=== PATIENT | female | born 1950 | race Hispanic/Latino ===

== ENCOUNTER 2018-05-18 00:04 | Inpatient (IN) | payer BC, MEDICARE ==
[2018-05-18 00:04] VITALS: BMI 23.4
--- NOTE | 2018-05-18 00:26 | C.PDOC ---
History Of Present Illness The patient presents to the ED for evaluation of suprapubic abdominal pain which began around two days ago. She also reports a couple episodes of emesis. Patient is currently undergoing treatment for CLL. She was evaluated by her gas troenterologist, Dr. Pearson, earlier today and referred to the ED for further evaluation. Patient denies fever, chills. Time Seen by Provider: 05/18/18 00:26 Chief Complaint (Nursing): Abdominal Pain History Per: Patient History/Exam Limitations: no limitations Onset/Duration Of Symptoms: Days (2) Current Symptoms Are (Timing): Still Present Severity: Mild Pain Scale Rating Of: 4 Location Of Pain/Discomfort: RLQ, Suprapubic Radiation Of Pain To:: None Quality Of Discomfort: Dull, Aching Associated Symptoms: Vomiting. denies: Fever, Chills Exacerbating Factors: None Alleviating Factors: None Last Bowel Movement: Today Recent travel outside of the [place]: No Additional History Per: Patient Abnormal Vaginal Bleeding: No Past Medical History Reviewed: Historical Data, Nursing Documentation, Vital Signs Vital Signs: Last Vital Signs Temp 98.0 F 05/18/18 00:15 Pulse 69 05/18/18 00:15 Resp 20 05/18/18 00:15 BP 120/74 05/18/18 00:15 Pulse Ox 98 05/18/18 00:15 - Medical History PMH: HTN, Hypercholesterolemia, Hyperlipidemia Denies: Alzheimer's Disease, Asthma, Atrial Fibrillation, Bronchitis, Cardia Arrhythmia, CHF, COPD, Emphysema, Mitral Valve Prolapse, Peripheral Edema, Pneumonia, Pulmonary Embolism, Chronic Kidney Disease, Sleep Apnea Surgical History: No Surg Hx Denies: Pacemaker - [employer] Procedures BONE MARROW BIOPSY (01/08/13) Family History: States: Unknown Family Hx - Social History Hx Tobacco Use: No Hx Alcohol Use: No Hx Substance Use: No - Immunization History Hx Tetanus Toxoid Vaccination: No Hx Influenza Vaccination: Yes Hx Pneumococcal Vaccination: Yes Review Of Systems Constitutional: Negative for: Fever, Chills Cardiovascular: Negative for: Chest Pain, Palpitations Respiratory: Negative for: Cough, Shortness of Breath Gastrointestinal: Positive for: Vomiting, Abdominal Pain (suprapubic ). Negative for: Diarrhea Genitourinary: Negative for: Dysuria, Frequency, Hematuria Musculoskeletal: Negative for: Back Pain Skin: Negative for: Rash, Lesions, Jaundice, Bruising Neurological: Negative for: Weakness, Numbness Psych: Negative for: Anxiety Physical Exam - Physical Exam Appears: Non-toxic, No Acute Distress Skin: Warm, Dry Head: Normacephalic Eye(s): bilateral: Normal Inspection Oral Mucosa: Moist Neck: Supple Chest: Symmetrical, No Deformity Cardiovascular: Rhythm Regular, No Murmur Respiratory: No Rales, No Rhonchi, No Wheezing Gastrointestinal/Abdominal: Soft, Tenderness (diffuse ), No Distention, Guarding (mild, voluntary ), No Rebound, Other (tympanic to percussion ) Back: Normal Inspection Extremity: Normal ROM, Capillary Refill (less than 2 seconds ) Extremity: Bilateral: Atraumatic Neurological/Psych: Oriented x3 Gait: Steady ED Course And Treatment - Laboratory Results Result Diagrams: 05/18/18 00:56 05/18/18 00:56 ECG: Interpreted By Me, Viewed By Me ECG Rhythm: Sinus Rhythm (71), Nonspecific Changes (occ pvc's) O2 Sat by Pulse Oximetry: 98 (on RA ) Pulse Ox Interpretation: Normal - CT Scan/US CT A/P Other Rad Studies (CT/US): Read By Radiologist, Radiology Report Reviewed CT/US Interpretation: EXAM: CT Abdomen and Pelvis with IV contrast. CLINICAL HISTORY: Abd pain. TECHNIQUE: Axial computed tomography images of the abdomen and pelvis with oral and intravenous contrast. CONTRAST: With; OMNI 240 & 100MLS VISI 320. COMPARISON: None provided. FINDINGS: LUNG BASES: The lung bases appear clear. No pleural effusions are seen. LIVER: Several small hepatic cysts noted. GALLBLADDER AND BILE DUCTS: The gallbladder appears within normal limits. No radioopaque gallstones are seen. No biliary ductal dilatation is evident. PANCREAS: Unremarkable. SPLEEN: Unremarkable. ADRENAL GLANDS: Unremarkable. KIDNEYS, URETERS, AND BLADDER: The kidneys appear within normal limits. There is no hydronephrosis or hydroureter. No urinary calculi are seen. Several small cortical renal cysts bilaterally. STOMACH AND BOWEL: Unremarkable appearance of the stomach and bowel. No evidence of bowel obstruction. No evidence suggesting enteritis or colitis. APPENDIX: Markedly dilated fluid filled thick walled appendix with marked adjacent stranding compatible with acute appendicitis. No abscess or free air noted. PERITONEUM: Trace abdominal and pelvic ascites. LYMPH NODES: No lymphadenopathy is evident. REPRODUCTIVE: Unremarkable as visualized. VASCULATURE: No evidence of abdominal aortic aneurysm. BONES: No aggressive appearing osseous lesion. No acute osseous pathology evident. IMPRESSION: 1. Markedly dilated fluid filled thick walled appendix with marked adjacent stranding compatible with acute appendicitis. No abscess or free air noted. 2. Trace abdominal and pelvic ascites. 3. Several small hepatic and renal cysts noted. Progress Note: Bloodwork, urinalysis, CT A/P, EKG ordered. Protonix IVP, Toradol IVP, Zofran IVP, and IV Fluids given. spoke with dr bell her oncologist -do not take the IMBRUVICA for 7 days after the surgery. spoke with surgery - will come and see the pt in the ed Disposition Discussed With Dr.: Nico Suresh Comment: accepted the pt on his service and took over the care at 5:12AM Doctor Will See Patient In The: ED Counseled Patient/Family Regarding: Studies Performed, Diagnosis - Disposition Disposition: HOSPITALIZED Disposition Time: 00:26 Condition: FAIR Forms: [employer] (Latvian) - POA Present On Arrival: None - Clinical Impression Clinical Impression: Abdominal pain, Acute appendicitis, CLL (chronic lymphocytic leukemia) - Scribe Statement The provider has reviewed the documentation as recorded by the Scribe (Radha Harris) Provider Attestation: All medical record entries made by the Scribe were at my direction and personally dictated by me. I have reviewed the chart and agree that the record accurately reflects my personal performance of the history, physical exam, medical decision making, and the department course for this patient. I have also personally directed, reviewed, and agree with the discharge instructions and di sposition. Decision To Admit - Pt Status Changed To: Hospital Disposition Of: Inpatient - Admit Certification Admit to Inpatient:: After my assessment, the patient will require hospit alization for at least two midnights. This is because of the severity of symptoms shown, intensity of services needed, and/or the medical risk in this patient being treated as an outpatient. - InPatient: Physician Admission Certification:: After my assessment, the patient will require hospitalization for at least two midnights. This is because of the severity of symptoms shown, intensity of services needed, and/or the medical risk in this patient being treated as an outpatient. - . Bed Request Type: Regular Admitting Physician: Nico Suresh Patient Diagnosis: Abdominal pain, Acute appendicitis, CLL (chronic lymphocytic leukemia)
[2018-05-18] MEDS ORDERED: Sodium Chloride 0.9% 1,000 ML IV ONE (00:35)
[2018-05-18] MEDS ORDERED: Iohexol 240 (50 ml) PO STA (00:35)
[2018-05-18] MEDS ORDERED: Sodium Chloride 0.9% 1,000 ML ONE (01:00)
[2018-05-18] MEDS ORDERED: Iohexol 240 (50 ml) ONE (01:00)
[2018-05-18 01:08] LABS: INR 1.3; PROTHROMBIN TIME 14.5 SECONDS (9.7-12.2)
[2018-05-18 01:27] LABS: ALB/GLOB RATIO 1.5 (1.0-2.1); ALBUMIN 4.4 g/dL (3.5-5.0); ALT/SGPT 8 U/L (9-52); AST/SGOT 15 U/L (14-36); BLOOD UREA NITROGEN 14 mg/dL (7-17); CALCIUM 8.8 mg/dl (8.6-10.4); GFR NON-AFRICAN AMERICAN > 60; LIPASE 23 U/L (23-300)
[2018-05-18 01:36] LABS: BASO # 0.1 K/uL (0.0-0.2); BASO % 0.5 % (0.0-2.0); HEMOGLOBIN 13.2 g/dL (11.0-16.0); LYMPH # 0.7 K/uL (1.0-4.3); LYMPH % 3.3 % (20.0-40.0); MEAN CELL VOLUME 79.6 fL (81.0-99.0); MEAN CORPUSCULAR HEMOGLOBIN 24.2 pg (27.0-31.0); MEAN CORPUSCULAR HGB CONC 30.4 g/dL (33.0-37.0); MEAN PLATELET VOLUME 12.9 fL (7.2-11.7); MONO # 1.7 K/uL (0.0-0.8); MONO % 7.9 % (0.0-10.0); NEUT # 18.7 K/uL (1.8-7.0); NEUT % 88.3 % (50.0-75.0); PLATELET COUNT 121 K/uL (130-400); RBC 5.46 Mil/uL (3.80-5.20); RED CELL DISTRIBUTION WIDTH 16.3 % (11.5-14.5); WHITE BLOOD COUNT 21.2 K/uL (4.8-10.8)
[2018-05-18] MEDS ORDERED: Iodixanol 320 MG/ML 100 ML BOTTLE IV ONE (02:38)
[2018-05-18 03:54] LABS: LYMPHOCYTE 4 % (20-40); MONOCYTE 9 % (0-10); NEUTROPHIL 87 % (50-75); TOTAL CELLS COUNTED 100
[2018-05-18 03:55] LABS: PLATELET ESTIMATE SLIGHTLY DECREASED (NORMAL)
[2018-05-18] MEDS ORDERED: Piperacillin/Tazobact 3.375 gm 100 ML IVPB STA (03:55)
[2018-05-18] MEDS ORDERED: Piperacillin/Tazobact 3.375 gm 100 ML IVPB ONE (04:20)
[2018-05-18 07:12] LABS: URINE BACTERIA RARE (<OCC); URINE BILIRUBIN NEGATIVE (NEGATIVE); URINE BLOOD NEGATIVE (NEGATIVE); URINE CLARITY Clear (Clear); URINE COLOR Yellow (YELLOW); URINE GLUCOSE (UA) NORMAL (Normal); URINE LEUKOCYTE ESTERASE TRACE Leu/uL (Negative); URINE PROTEIN NEGATIVE (NEGATIVE); URINE UROBILINOGEN NORMAL mg/dL (0.2-1.0)
[2018-05-18] MEDS ORDERED: Piperacillin/Tazobact 3.375 GM in Sodium Chloride 100 ML IVPB SCH (07:15)
[2018-05-18] MEDS ORDERED: Lactated Ringer's 1,000 ML IV SCH ×2 (07:30→12:30)
--- NOTE | 2018-05-18 07:33 | CP.PCM.CON ---
History of Present Illness - History of Present Illness History of Present Illness: Surgery: Dr. Galloway Pt is a 67F with PMHx significant for CLL & adrenal adenoma s/p L adrenalectomy who presents to with complaints of abdominal pain that started on tuesday night. Pt states the pain was mostly located in the lower part of her abdomen, radiating from the R to the L side. She states she has never had pain like this in the past. She decided to come to the hospital yesterday when her pain did not improve. Pt admits to associated nausea but denies vomiting, fevers/chills. In the ER, pt had a CT abdomen/pelvis which shows dilated appendix with fat stranding. Surgery called to evaluate. Currently, pt is resting comfortably. States the pain medication is helping however, pain is still there. She states her last colonoscopy was [address] Pearson and it was normal. Denies other complaints at this time. PMHx: CLL, adrenal adenoma PSHx: , L adrenalectomy, R oopherectomy SocialHx: denies smoking/EtOH/drugs FamHx: non-contributory All: NKDA Review of Systems - Review of Systems All systems: reviewed and no additional remarkable complaints except (as per HPI) Past Patient History - Past Medical History & Family History Past Medical History?: Yes - Past Social History Smoking Status: Never Smoked - CARDIAC Hx Atrial Fibrillation: No Hx Cardia Arrhythmia: No Hx Congestive Heart Failure: No Hx Pacemaker: No Hx Peripheral Edema: No - PULMONARY Hx Asthma: No Hx Bronchitis: No Hx Chronic Obstructive Pulmonary Disease (COPD): No Hx Emphysema: No Hx Pneumonia: No Hx Pulmonary Embolism: No Hx Sleep Apnea: No - NEUROLOGICAL Hx Alzheimer's Disease: No - HEENT Hx HEENT Problems: No Other/Comment: wear eyeglasses - RENAL Hx Chronic Kidney Disease: No - ENDOCRINE/METABOLIC Hx Endocrine Disorders: Yes Hx Adrenal Cancer: Yes (adrenal mass benign) - HEMATOLOGICAL/ONCOLOGICAL Hx Blood Transfusions: Yes (post surgery 1992) - INTEGUMENTARY Hx Dermatological Problems: No - MUSCULOSKELETAL/RHEUMATOLOGICAL Hx Falls: No - GASTROINTESTINAL Hx Gastroesophageal Reflux: Yes - GENITOURINARY/GYNECOLOGICAL Hx Genitourinary Disorders: No - PSYCHIATRIC Hx Substance Use: No - SURGICAL HISTORY Hx Surgeries: Yes Hx Section: Yes (1x) Other/Comment: cyst removed from R breast,biopsy negative;adrenalectomy,mass benign. right ovary removed - ANESTHESIA Hx Anesthesia: Yes Hx Anesthesia Reactions: No Hx Malignant Hyperthermia: No Meds Allergies/Adverse Reactions: Allergies Allergy/AdvReac Type Severity Reaction Status Date / Time No Known Allergies Allergy Verified 01/08/13 09:48 - Medications Medications: Current Medications Lactated Ringer's (Lactated Ringer's) 1,000 mls @ 100 mls/hr IV .Q10H LEISA Physical Exam - Constitutional Appears: Well, No Acute Distress - Head Exam Head Exam: ATRAUMATIC, NORMOCEPHALIC - Eye Exam Eye Exam: Normal appearance - ENT Exam ENT Exam: Mucous Membranes Moist - Respiratory Exam Respiratory Exam: NORMAL BREATHING PATTERN - Cardiovascular Exam Cardiovascular Exam: RRR - GI/Abdominal Exam GI & Abdominal Exam: Rebound, Soft, Tenderness (RLQ/suprapubic ). absent: Distended - Neurological Exam Neurological exam: Alert, Oriented x3 - Skin Skin Exam: Dry Results - Vital Signs Recent Vital Signs: Last Vital Signs Temp 100.0 F H 05/18/18 06:44 Pulse 98 H 05/18/18 06:15 Resp 16 05/18/18 06:15 BP 122/68 05/18/18 06:15 Pulse Ox 100 05/18/18 06:15 - Labs Result Diagrams: 05/18/18 00:56 05/18/18 00:56 Labs: Laboratory Results - last 24 hr 05/18/18 05/18/18 05/18/18 00:56 00:56 00:56 WBC 21.2 H RBC 5.46 H Hgb 13.2 D Hct 43.4 MCV 79.6 L D MCH 24.2 L MCHC 30.4 L RDW 16.3 H Plt Count 121 L MPV 12.9 H Neut % (Auto) 88.3 H Lymph % (Auto) 3.3 L [place] % (Auto) 7.9 Eos % (Auto) 0.0 Baso % (Auto) 0.5 Neut # (Auto) 18.7 H Lymph # (Auto) 0.7 L [place] # (Auto) 1.7 H Eos # (Auto) 0.0 Baso # (Auto) 0.1 Neutrophils % (Manual) 87 H Lymphocytes % (Manual) 4 L Monocytes % (Manual) 9 Platelet Estimate Slightly decreased L PT 14.5 H INR 1.3 APTT 26 Sodium 139 Potassium 3.7 Chloride 102 Carbon Dioxide 26 Anion Gap 15 BUN 14 Creatinine 0.8 Est GFR ( Amer) > 60 Est GFR (Non-Af Amer) > 60 Random Glucose 105 Calcium 8.8 Total Bilirubin 1.8 H AST 15 ALT 8 L Alkaline Phosphatase 71 Total Protein 7.3 Albumin 4.4 Globulin 2.9 Albumin/Globulin Ratio 1.5 Lipase 23 Urine Color Urine Clarity Urine pH Ur Specific [place] Urine Protein Urine Glucose (UA) Urine Ketones Urine Blood Urine Nitrate Urine Bilirubin Urine Urobilinogen Ur Leukocyte Esterase Urine WBC (Auto) Urine RBC (Auto) Urine Bacteria 05/18/18 06:49 WBC RBC Hgb Hct MCV MCH MCHC RDW Plt Count MPV Neut % (Auto) Lymph % (Auto) [place] % (Auto) Eos % (Auto) Baso % (Auto) Neut # (Auto) Lymph # (Auto) [place] # (Auto) Eos # (Auto) Baso # (Auto) Neutrophils % (Manual) Lymphocytes % (Manual) Monocytes % (Manual) Platelet Estimate PT INR APTT Sodium Potassium Chloride Carbon Dioxide Anion Gap BUN Creatinine Est GFR ( Amer) Est GFR (Non-Af Amer) Random Glucose Calcium Total Bilirubin AST ALT Alkaline Phosphatase Total Protein Albumin Globulin Albumin/Globulin Ratio Lipase Urine Color Yellow Urine Clarity Clear Urine pH 6.0 Ur Specific [place] 1.006 Urine Protein Negative Urine Glucose (UA) Normal Urine Ketones Trace Urine Blood Negative Urine Nitrate Negative Urine Bilirubin Negative Urine Urobilinogen Normal Ur Leukocyte Esterase Trace Urine WBC (Auto) 2 Urine RBC (Auto) 3 Urine Bacteria Rare - Imaging and Cardiology CT scan - abdomen Status: Image reviewed by me, Report reviewed by me Assessment & Plan - Assessment and Plan (Free Text) Assessment: 67F with acute appendicitis Plan: - Keep NPO - IV ABX & IVF - OR for lap appendectomy - d/w Dr. Laverne Wilks
--- NOTE | 2018-05-18 09:41 | CP.PCM.CON ---
History of Present Illness - History of Present Illness History of Present Illness: I was asked to see patient for abdom pain. 67 yo female h/o HTN, lymphoma, was seen in the office yest afternoon- reported RLQ pain x 1 day- mod. Denied fever, N,V, chills, Sz. Then in evening pain became worse. She called me and I sent her to ER. I called the ER MD11:30 last night. Patient in the ER was found to have elev WBC [address] showing a distended appendix. Surgery consult was called Dr Galloway. Denies const, diarrhea, RB, melena. Review of Systems - Constitutional Constitutional: absent: Chills, Fever - EENT Eyes: absent: Diplopia - Cardiovascular Cardiovascular: absent: Chest Pain, Dyspnea, Palpitations - Respiratory Respiratory: absent: Cough, Dyspnea, Hemoptysis - Gastrointestinal Gastrointestinal: Abdominal Pain. absent: Coffee Ground Emesis, Diarrhea, Dysphagia, Hematemesis, Hematochezia, Loose Stools, Melena, Vomiting - Genitourinary Genitourinary: absent: Dysuria, Flank Pain, Hematuria - Musculoskeletal Musculoskeletal: absent: Muscle Cramps - Integumentary Integumentary: absent: Rash, Jaundice - Neurological Neurological: absent: Convulsions, Headaches Past Patient History - Past Medical History & Family History Past Medical History?: Yes - Past Social History Smoking Status: Never Smoked - CARDIAC Hx Atrial Fibrillation: No Hx Cardia Arrhythmia: No Hx Congestive Heart Failure: No Hx Pacemaker: No Hx Peripheral Edema: No - PULMONARY Hx Asthma: No Hx Bronchitis: No Hx Chronic Obstructive Pulmonary Disease (COPD): No Hx Emphysema: No Hx Pneumonia: No Hx Pulmonary Embolism: No Hx Sleep Apnea: No - NEUROLOGICAL Hx Alzheimer's Disease: No - HEENT Hx HEENT Problems: No Other/Comment: wear eyeglasses - RENAL Hx Chronic Kidney Disease: No - ENDOCRINE/METABOLIC Hx Endocrine Disorders: Yes Hx Adrenal Cancer: Yes (adrenal mass benign) - HEMATOLOGICAL/ONCOLOGICAL Hx Blood Transfusions: Yes (post surgery 1992) - INTEGUMENTARY Hx Dermatological Problems: No - MUSCULOSKELETAL/RHEUMATOLOGICAL Hx Falls: No - GASTROINTESTINAL Hx Gastroesophageal Reflux: Yes - GENITOURINARY/GYNECOLOGICAL Hx Genitourinary Disorders: No - PSYCHIATRIC Hx Substance Use: No - SURGICAL HISTORY Hx Surgeries: Yes Hx Section: Yes (1x) Other/Comment: cyst removed from R breast,biopsy negative;adrenalectomy,mass benign. right ovary removed - ANESTHESIA Hx Anesthesia: Yes Hx Anesthesia Reactions: No Hx Malignant Hyperthermia: No Meds Allergies/Adverse Reactions: Allergies Allergy/AdvReac Type Severity Reaction Status Date / Time No Known Allergies Allergy Verified 01/08/13 09:48 - Medications Medications: Current Medications Lactated Ringer's (Lactated Ringer's) 1,000 mls @ 100 mls/hr IV .Q10H LEISA Piperacillin Sod/Tazobactam (Sod 3.375 gm/ Sodium Chloride) 100 mls @ 200 ml s/hr IVPB Q6H LEISA; Protocol Ondansetron HCl (Zofran Inj) 4 mg IVP Q4H PRN PRN Reason: Nausea/Vomiting Physical Exam - Constitutional Appears: Non-toxic - Neck Exam Neck exam: Negative for: Tenderness - Respiratory Exam Respiratory Exam: Clear to Auscultation Bilateral - Cardiovascular Exam Cardiovascular Exam: RRR - GI/Abdominal Exam GI & Abdominal Exam: Guarding, Normal Bowel Sounds, Soft, Tenderness. absent: Distended, Mass, Rebound Additional comments: mod tender RLQ - Extremities Exam Extremities exam: Negative for: calf tenderness, pedal edema - Neurological Exam Neurological exam: Alert - Psychiatric Exam Psychiatric exam: Normal Affect Results - Vital Signs Recent Vital Signs: Last Vital Signs Temp 98.4 F 05/18/18 08:00 Pulse 88 05/18/18 08:00 Resp 20 05/18/18 08:00 BP 92/59 L 05/18/18 08:00 Pulse Ox 95 05/18/18 08:00 - Labs Result Diagrams: 05/18/18 00:56 05/18/18 00:56 Labs: Laboratory Results - last 24 hr 05/18/18 05/18/18 05/18/18 00:56 00:56 00:56 WBC 21.2 H RBC 5.46 H Hgb 13.2 D Hct 43.4 MCV 79.6 L D MCH 24.2 L MCHC 30.4 L RDW 16.3 H Plt Count 121 L MPV 12.9 H Neut % (Auto) 88.3 H Lymph % (Auto) 3.3 L [place] % (Auto) 7.9 Eos % (Auto) 0.0 Baso % (Auto) 0.5 Neut # (Auto) 18.7 H Lymph # (Auto) 0.7 L [place] # (Auto) 1.7 H Eos # (Auto) 0.0 Baso # (Auto) 0.1 Neutrophils % (Manual) 87 H Lymphocytes % (Manual) 4 L Monocytes % (Manual) 9 Platelet Estimate Slightly decreased L PT 14.5 H INR 1.3 APTT 26 Sodium 139 Potassium 3.7 Chloride 102 Carbon Dioxide 26 Anion Gap 15 BUN 14 Creatinine 0.8 Est GFR ( Amer) > 60 Est GFR (Non-Af Amer) > 60 Random Glucose 105 Calcium 8.8 Total Bilirubin 1.8 H AST 15 ALT 8 L Alkaline Phosphatase 71 Total Protein 7.3 Albumin 4.4 Globulin 2.9 Albumin/Globulin Ratio 1.5 Lipase 23 Urine Color Urine Clarity Urine pH Ur Specific [place] Urine Protein Urine Glucose (UA) Urine Ketones Urine Blood Urine Nitrate Urine Bilirubin Urine Urobilinogen Ur Leukocyte Esterase Urine WBC (Auto) Urine RBC (Auto) Urine Bacteria 05/18/18 06:49 WBC RBC Hgb Hct MCV MCH MCHC RDW Plt Count MPV Neut % (Auto) Lymph % (Auto) [place] % (Auto) Eos % (Auto) Baso % (Auto) Neut # (Auto) Lymph # (Auto) [place] # (Auto) Eos # (Auto) Baso # (Auto) Neutrophils % (Manual) Lymphocytes % (Manual) Monocytes % (Manual) Platelet Estimate PT INR APTT Sodium Potassium Chloride Carbon Dioxide Anion Gap BUN Creatinine Est GFR ( Amer) Est GFR (Non-Af Amer) Random Glucose Calcium Total Bilirubin AST ALT Alkaline Phosphatase Total Protein Albumin Globulin Albumin/Globulin Ratio Lipase Urine Color Yellow Urine Clarity Clear Urine pH 6.0 Ur Specific [place] 1.006 Urine Protein Negative Urine Glucose (UA) Normal Urine Ketones Trace Urine Blood Negative Urine Nitrate Negative Urine Bilirubin Negative Urine Urobilinogen Normal Ur Leukocyte Esterase Trace Urine WBC (Auto) 2 Urine RBC (Auto) 3 Urine Bacteria Rare Assessment & Plan (1) HTN (hypertension) Status: Acute (2) Abdominal pain Assessment and Plan: CT- dil appendix, stranding, and elev WBC- c/w acute appendicitis. Dr Galloway on consult. Plan for surgery. Status: Acute (3) Acute appendicitis Status: Acute (4) CLL (chronic lymphocytic leukemia) Status: Acute (5) Lymphoma in remission Status: Chronic (6) Thrombocytopenia Assessment and Plan: PLTs 121 Status: Acute
[2018-05-18] MEDS: Piperacillin/Tazobact 3.375 GM in Sodium Chloride 100 ML IVPB SCH ×3 (10:26→20:37)
[2018-05-18] MEDS ORDERED: Bupivacaine 0.5%/Epi 1:200,000 (10 ML SOL) ONE (10:48)
[2018-05-18] MEDS ORDERED: Propofol 10 mg/ml Inj (20 ML) ONE (10:54)
[2018-05-18] MEDS ORDERED: Midazolam 2 MG/2 ML VIAL ONE (10:54)
[2018-05-18] MEDS ORDERED: Succinylcholine Chloride 20 mg/ml Syr (5 ml) IV ONE (10:56)
[2018-05-18] MEDS ORDERED: Rocuronium 10 mg/ml (5 ml) ONE (11:11)
[2018-05-18] MEDS ORDERED: Neostigmine 1:1000 (1 mg/ml) Inj ONE (11:55)
[2018-05-18] MEDS ORDERED: Oxycodone/Acetaminophen 5/325 mg Tab PO PRN (12:06)
--- NOTE | 2018-05-18 12:30 | PCM.SURG1 ---
Surgeon's Initial Post Op Note - Surgeon's Notes Surgeon: Dr. Galloway Group Therapist: Sari PGY2; Dre MS3 Type of Anesthesia: General Endo, Local Anesthesia Administered By: Dr. Alvarenga Pre-Operative Diagnosis: Acute Appendicitis Operative Findings: See operative report Post-Operative Diagnosis: Same Operation Performed: Laparascopic Appendectomy Specimen/Specimens Removed: Appendix Estimated Blood Loss: EBL {In ML}: 20 Blood Products Given: N/A Drains Used: No Drains Post-Op Condition: Good Date of Surgery/Procedure: 05/18/18 Time of Surgery/Procedure: 12:30
--- NOTE | 2018-05-18 12:43 | CT ---
Date of service: 05/18/2018 PROCEDURE: CT Abdomen and Pelvis with contrast HISTORY: abd pain COMPARISON: 11/15/2013 CT abdomen and pelvis. TECHNIQUE: Intravenous contrast dose: 100 cc Visipaque 320. Radiation dose: Total exam DLP = 75.49 mGy-cm. This CT exam was performed using one or more of the following dose reduction techniques: Automated exposure control, adjustment of the mA and/or kV according to patient size, and/or use of iterative reconstruction technique. FINDINGS: LOWER THORAX: Unremarkable. LIVER: Hepatic steatosis. No focal masses. No intrahepatic bile duct dilatation or perihepatic ascites. Incidental finding(s): Multiple simple hepatic cysts the largest in the right hepatic lobe. GALLBLADDER AND BILE DUCTS: Unremarkable. PANCREAS: Unremarkable. No gross lesion or ductal dilatation. SPLEEN: Unremarkable. ADRENALS: Unremarkable. No mass. KIDNEYS AND URETERS: Unremarkable. No hydronephrosis. No solid mass. Incidental finding(s): Multiple bilateral simple renal cysts. VASCULATURE: Unremarkable. No aortic aneurysm. No atherosclerotic calcification or mural plaque present. BOWEL: Dilated small bowel may be secondary to the right lower quadrant inflammatory change/acute appendicitis. APPENDIX: Markedly dilated, edematous appearing appendix with [place]ía appendiceal/right lower quadrant inflammatory changes. Adjacent fluid noted right lower quadrant and pelvis. PERITONEUM: Fluid adjacent to the cecum/appendix identified and there is trace pelvic fluid.. No free air. LYMPH NODES: Unremarkable. No enlarged lymph nodes. BLADDER: Unremarkable. REPRODUCTIVE: Myomatous appearing uterus. BONES: No acute fracture. OTHER FINDINGS: None. IMPRESSION: Acute appendicitis with adjacent inflammatory changes. Free fluid adjacent to the cecum, [id number] and subhepatic space. Concordant results (preliminary interpretation) provided by [employer]. Procedure Completed: 02:49. Preliminary Report: Dictated and Authenticated: 03:56. Final Interpretation: 12:39. May 18, 2018
--- NOTE | 2018-05-18 14:54 | CP.PCM.HP ---
Past Patient History - Past Medical History & Family History Past Medical History?: Yes - Past Social History Smoking Status: Never Smoked - CARDIAC Hx Atrial Fibrillation: No Hx Cardia Arrhythmia: No Hx Congestive Heart Failure: No Hx Pacemaker: No Hx Peripheral Edema: No - PULMONARY Hx Asthma: No Hx Bronchitis: No Hx Chronic Obstructive Pulmonary Disease (COPD): No Hx Emphysema: No Hx Pneumonia: No Hx Pulmonary Embolism: No Hx Sleep Apnea: No - NEUROLOGICAL Hx Alzheimer's Disease: No - HEENT Hx HEENT Problems: No Other/Comment: wear eyeglasses - RENAL Hx Chronic Kidney Disease: No - ENDOCRINE/METABOLIC Hx Endocrine Disorders: Yes Hx Adrenal Cancer: Yes (adrenal mass benign) - HEMATOLOGICAL/ONCOLOGICAL Hx Blood Transfusions: Yes (post surgery 1992) - INTEGUMENTARY Hx Dermatological Problems: No - MUSCULOSKELETAL/RHEUMATOLOGICAL Hx Falls: No - GASTROINTESTINAL Hx Gastroesophageal Reflux: Yes - GENITOURINARY/GYNECOLOGICAL Hx Genitourinary Disorders: No - PSYCHIATRIC Hx Substance Use: No - SURGICAL HISTORY Hx Surgeries: Yes Hx Section: Yes (1x) Other/Comment: cyst removed from R breast,biopsy negative;adrenalectomy,mass benign. right ovary removed - ANESTHESIA Hx Anesthesia: Yes Hx Anesthesia Reactions: No Hx Malignant Hyperthermia: No Meds Allergies/Adverse Reactions: Allergies Allergy/AdvReac Type Severity Reaction Status Date / Time No Known Allergies Allergy Verified 01/08/13 09:48 Results - Vital Signs Recent Vital Signs: Last Vital Signs Temp 98.4 F 05/18/18 13:58 Pulse 84 05/18/18 13:58 Resp 20 05/18/18 13:58 BP 117/65 05/18/18 13:58 Pulse Ox 95 05/18/18 13:58 - Labs Result Diagrams: 05/18/18 00:56 05/18/18 00:56 Labs: Laboratory Results - last 24 hr 05/18/18 05/18/18 05/18/18 00:56 00:56 00:56 WBC 21.2 H RBC 5.46 H Hgb 13.2 D Hct 43.4 MCV 79.6 L D MCH 24.2 L MCHC 30.4 L RDW 16.3 H Plt Count 121 L MPV 12.9 H Neut % (Auto) 88.3 H Lymph % (Auto) 3.3 L Bland % (Auto) 7.9 Eos % (Auto) 0.0 Baso % (Auto) 0.5 Neut # (Auto) 18.7 H Lymph # (Auto) 0.7 L Bland # (Auto) 1.7 H Eos # (Auto) 0.0 Baso # (Auto) 0.1 Neutrophils % (Manual) 87 H Lymphocytes % (Manual) 4 L Monocytes % (Manual) 9 Platelet Estimate Slightly decreased L PT 14.5 H INR 1.3 APTT 26 Sodium 139 Potassium 3.7 Chloride 102 Carbon Dioxide 26 Anion Gap 15 BUN 14 Creatinine 0.8 Est GFR ( Amer) > 60 Est GFR (Non-Af Amer) > 60 Random Glucose 105 Calcium 8.8 Total Bilirubin 1.8 H AST 15 ALT 8 L Alkaline Phosphatase 71 Total Protein 7.3 Albumin 4.4 Globulin 2.9 Albumin/Globulin Ratio 1.5 Lipase 23 Urine Color Urine Clarity Urine pH Ur Specific Luke Urine Protein Urine Glucose (UA) Urine Ketones Urine Blood Urine Nitrate Urine Bilirubin Urine Urobilinogen Ur Leukocyte Esterase Urine WBC (Auto) Urine RBC (Auto) Urine Bacteria 05/18/18 06:49 WBC RBC Hgb Hct MCV MCH MCHC RDW Plt Count MPV Neut % (Auto) Lymph % (Auto) Bland % (Auto) Eos % (Auto) Baso % (Auto) Neut # (Auto) Lymph # (Auto) Bland # (Auto) Eos # (Auto) Baso # (Auto) Neutrophils % (Manual) Lymphocytes % (Manual) Monocytes % (Manual) Platelet Estimate PT INR APTT Sodium Potassium Chloride Carbon Dioxide Anion Gap BUN Creatinine Est GFR ( Amer) Est GFR (Non-Af Amer) Random Glucose Calcium Total Bilirubin AST ALT Alkaline Phosphatase Total Protein Albumin Globulin Albumin/Globulin Ratio Lipase Urine Color Yellow Urine Clarity Clear Urine pH 6.0 Ur Specific [place] 1.006 Urine Protein Negative Urine Glucose (UA) Normal Urine Ketones Trace Urine Blood Negative Urine Nitrate Negative Urine Bilirubin Negative Urine Urobilinogen Normal Ur Leukocyte Esterase Trace Urine WBC (Auto) 2 Urine RBC (Auto) 3 Urine Bacteria Rare
[2018-05-18] MEDS ORDERED: Benzocaine/Menthol (Cepacol) Lozenge MT PRN (23:10)
[2018-05-19] MEDS: Piperacillin/Tazobact 3.375 GM in Sodium Chloride 100 ML IVPB SCH ×2 (02:09→09:46)
[2018-05-19 07:32] LABS: BASO % 0.2 % (0.0-2.0); LYMPH # 0.3 K/uL (1.0-4.3); LYMPH % 1.7 % (20.0-40.0); MEAN CELL VOLUME 79.4 fL (81.0-99.0); MEAN CORPUSCULAR HEMOGLOBIN 25.2 pg (27.0-31.0); MEAN CORPUSCULAR HGB CONC 31.7 g/dL (33.0-37.0); MEAN PLATELET VOLUME 11.9 fL (7.2-11.7); MONO % 7.1 % (0.0-10.0); NEUT # 13.4 K/uL (1.8-7.0); RBC 4.16 Mil/uL (3.80-5.20); RED CELL DISTRIBUTION WIDTH 16.1 % (11.5-14.5); WHITE BLOOD COUNT 14.7 K/uL (4.8-10.8)
[2018-05-19 07:50] LABS: HEMOGLOBIN 10.5 g/dL (11.0-16.0); PLATELET COUNT 83 K/uL (130-400)
[2018-05-19 07:51] LABS: ALB/GLOB RATIO 1.3 (1.0-2.1); ALBUMIN 3.3 g/dL (3.5-5.0); ALT/SGPT 22 U/L (9-52); AST/SGOT 21 U/L (14-36); BLOOD UREA NITROGEN 18 mg/dL (7-17); CALCIUM 8.2 mg/dl (8.6-10.4); GFR NON-AFRICAN AMERICAN > 60
--- NOTE | 2018-05-19 08:02 | CP.PCM.PN ---
Subjective - Date & Time of Evaluation Date of Evaluation: 05/19/18 Time of Evaluation: 07:59 - Subjective Subjective: Surgery Progress Note for Dr. Galloway 67F seen and evaluated at bedside this morning. No acute events overnight. No complaints this morning except mild incisional pain. Patient is ambulating, voiding, passing flatus, and having bowel movements. Denies f/c, n/v/d, SOB, CP, or urinary symptoms. Objective - Vital Signs/Intake and Output Vital Signs (last 24 hours): Temp Pulse Resp BP Pulse Ox 99.2 F 84 20 102/56 L 94 L 05/19/18 04:12 05/19/18 04:12 05/19/18 04:12 05/19/18 04:12 05/19/18 04:12 Intake and Output: 05/19/18 05/19/18 06:59 18:59 Intake Total 1050 Output Total 300 Balance 750 - Medications Medications: Current Medications Benzocaine/Menthol (Cepacol Sore Throat) 1 donell MT Q2H PRN PRN Reason: Sore Throat Last Admin: 05/19/18 02:07 Dose: 1 donell Piperacillin Sod/Tazobactam (Sod 3.375 gm/ Sodium Chloride) 100 mls @ 200 mls/hr IVPB Q6H LEISA; Protocol Last Admin: 05/19/18 02:09 Dose: 200 mls/hr Ondansetron HCl (Zofran Inj) 4 mg IVP Q4H PRN PRN Reason: Nausea/Vomiting Oxycodone/Acetaminophen (Percocet 5/325 Mg Tab) 1 tab PO Q4H PRN PRN Reason: Pain, moderate (4-7) Stop: 05/21/18 12:07 - Labs Labs: 05/19/18 07:27 05/19/18 07:27 PT 14.5 SECONDS (9.7-12.2) H 05/18/18 00:56 INR 1.3 05/18/18 00:56 APTT 26 SECONDS (21-34) 05/18/18 00:56 - Constitutional Appears: Well, Non-toxic, No Acute Distress - Head Exam Head Exam: ATRAUMATIC, NORMAL INSPECTION, NORMOCEPHALIC - Eye Exam Eye Exam: EOMI - ENT Exam ENT Exam: Mucous Membranes Moist - Respiratory Exam Respiratory Exam: NORMAL BREATHING PATTERN. absent: Respiratory Distress - Cardiovascular Exam Cardiovascular Exam: REGULAR RHYTHM. absent: Tachycardia - GI/Abdominal Exam GI & Abdominal Exam: Soft, Normal Bowel Sounds. absent: Distended, Tenderness Additional comments: incisions c/d/i w/ dermabond - Neurological Exam Neurological Exam: Alert, Awake - Psychiatric Exam Psychiatric exam: Normal Affect, Normal Mood - Skin Skin Exam: Dry, Intact, Normal Color, Warm Assessment and Plan - Assessment and Plan (Free Text) Assessment: 67F s/p laparoscopic appendectomy POD1 Plan: Regular diet Encourage ambulation and IS use Pain control and antiemetics PRN Cleared for discharge from a surgical standpoint To follow up with Dr. Gallowya in 2 weeks Behzad Smith PGY1
[2018-05-19 08:35] VITALS: BP 103/63; PULSE 78; RESP 18; TEMP 98.5; O2SAT 97
[2018-05-19 09:47] LABS: LYMPHOCYTE 2 % (20-40); MONOCYTE 5 % (0-10); NEUTROPHIL 93 % (50-75); PLATELET ESTIMATE DECREASED (NORMAL); TOTAL CELLS COUNTED 100
[2018-05-19 09:48] LABS: ANISOCYTOSIS SLIGHT; GIANT PLATELETS PRESENT; HYPOCHROMIC SLIGHT; LARGE PLATELETS PRESENT; OVALOCYTES SLIGHT; POIKILOCYTOSIS SLIGHT; TARGET CELLS SLIGHT
--- NOTE | 2018-05-19 10:03 | OP ---
PROCEDURE DATE: 05/18/2018 SURGEON: Dr. Galloway ASSISTANTS: Ashish Guo DO, PGY-2; medical student, Dre. TYPE OF ANESTHESIA: General endo and local anesthesia with 0.5% Marcaine. ANESTHESIA ADMINISTERED BY: Dr. Alvarenga. PREOPERATIVE DIAGNOSIS: Acute appendicitis. POSTOPERATIVE DIAGNOSIS: Acute appendicitis. PROCEDURE PERFORMED: Laparoscopic appendectomy. SPECIMEN: Appendix was removed as specimen. ESTIMATED BLOOD LOSS: 20 mL. DRAINS: No drains. BLOOD PRODUCTS: No blood products intraoperatively. POSTOPERATIVE CONDITION: Good. TIME OF SURGERY: 12:00. INDICATIONS: Acute appendicitis. This is a 67-year-old female, presented with right lower quadrant pain for the past two days. The patient has a history significant for CLL with baseline elevated leukocytosis. CT scan was performed which was consistent with acute appendicitis. Detailed physical examination performed consistent with acute appendicitis. Decision was made to proceed with a laparoscopic, possibly open appendectomy. Written consent was obtained, and the patient agreed to have procedure performed today. DESCRIPTION OF PROCEDURE: The patient was placed on the operating room table in the supine position. Time-out was performed using both pre-induction and pre-incision safety checklist to verify the correct patient, the procedure, the site, and additional critical information prior to beginning the procedure. General endotracheal anesthesia was induced by the anesthesiology team. The abdomen was prepped and draped in the usual sterile fashion using chlorhexidine prep. An incision was made in the natural skin line just below the umbilicus. The fascia was elevated, and a Veress needle was inserted. Proper positioning was confirmed, and the abdomen was insufflated with CO2 to a pressure of 15 mmHg. The opening pressure was 4. The patient tolerated the insufflation well. The peritoneum was entered using a 12-mm trocar using the Visiport. Upon entering the abdomen, extensive adhesions in the left lower quadrant were noted. A 5-mm trocar was placed in the right mid abdomen after using a few milliliters of local anesthesia. The 5-mm trocar was then inserted. Nontraumatic graspers were used to evaluate the cecum. No injuries from the initial trocar placement were noted. Under direct visualization, a second 5-mm trocar was inserted above the symphysis pubis. Care was taken to avoid injuring the bladder or any blood vessels, especially taking into account for the inferior epigastric vessels. The table was then placed in a Trendelenburg position and rotated with a slight right side up. The cecum was manipulated with a nontraumatic grasper, and the inflamed appendix was identified. The appendix was grasped and elevated exposing down to the base of the appendix. The appendix was noted to be inflamed. No abscess or phlegmon was noted. A window was developed in the mesoappendix at the base of the appendix at the level of the cecum. LigaSure device was used to divide the mesoappendix down to the base. Appropriate hemostasis was noted. An endoscopic linear cutting stapler was then used to divide and staple the base of the appendix. The stapler was removed. No injury or complications were noted. Staple line was visualized, and no complications noted. The appendix was subsequently placed into an endoscopic retrieval bag and removed via the 12-mm port site. The appendiceal stump at the base of the cecum was then irrigated, and hemostasis was assured. Fluid was suctioned from the right lower quadrant and the pelvis. The entire abdomen was thoroughly examined. Fluid was also suctioned from the right upper quadrant perihepatic region. The terminal ileum was found to be normal, and no other pathology was identified. Secondary trocars were removed under direct vision. Anesthesiology team provided a large gasp of air, and pneumoperitoneum was evacuated. After all trocars were removed, no bleeding was noted. The 12-mm trocar site was closed with an absorbable suture. The skin was subsequently closed with subcuticular sutures of 4-0 Monocryl. Dermabond surgical glue was then placed. A debriefing checklist was completed to share information of critical to postoperative care of the patient. The patient tolerated the procedure well and was taken to the postanesthesia care unit in stable condition upon extubation successfully by the anesthesia team. Ashish Guo DO Linus Galloway MD
--- NOTE | 2018-05-19 12:07 | CP.PCM.PN ---
Subjective - Date & Time of Evaluation Date of Evaluation: 05/19/18 Time of Evaluation: 12:07 - Subjective Subjective: PATIENT SEEN AND EXAMINED AT THE BEDSIDE Objective - Vital Signs/Intake and Output Vital Signs (last 24 hours): Temp Pulse Resp BP Pulse Ox 98.5 F 78 18 103/63 97 05/19/18 07:00 05/19/18 07:00 05/19/18 07:00 05/19/18 07:00 05/19/18 07:00 Intake and Output: 05/19/18 05/19/18 06:59 18:59 Intake Total 1050 Output Total 300 Balance 750 - Medications Medications: Current Medications Benzocaine/Menthol (Cepacol Sore Throat) 1 donell MT Q2H PRN PRN Reason: Sore Throat Last Admin: 05/19/18 02:07 Dose: 1 donell Piperacillin Sod/Tazobactam (Sod 3.375 gm/ Sodium Chloride) 100 mls @ 200 mls/hr IVPB Q6H LEISA; Protocol Last Admin: 05/19/18 09:46 Dose: 200 mls/hr Ondansetron HCl (Zofran Inj) 4 mg IVP Q4H PRN PRN Reason: Nausea/Vomiting Oxycodone/Acetaminophen (Percocet 5/325 Mg Tab) 1 tab PO Q4H PRN PRN Reason: Pain, moderate (4-7) Stop: 05/21/18 12:07 - Labs Labs: 05/19/18 07:27 05/19/18 07:27 PT 14.5 SECONDS (9.7-12.2) H 05/18/18 00:56 INR 1.3 05/18/18 00:56 APTT 26 SECONDS (21-34) 05/18/18 00:56 Assessment and Plan - Assessment and Plan (Free Text) Assessment: Please follow up with Dr. Galloway at his office on tuesday (05/23/2018) Please resume all home medications. Please resume regular diet. Ok to shower. No heavy lifting greater than 15 pounds for next 4 weeks. Tylenol or Advil for pain. If symptoms worsen, please return to the ED. call dr funes or pmd or go to the emergency room if symptom return or worsening
--- NOTE | 2018-05-19 12:27 | CP.PCM.PN ---
Subjective - Date & Time of Evaluation Date of Evaluation: 05/19/18 Time of Evaluation: 12:25 - Subjective Subjective: F/u appendicitis Feels well. Denies abdominal pain. Tolerating diet Objective - Vital Signs/Intake and Output Vital Signs (last 24 hours): Temp Pulse Resp BP Pulse Ox 98.5 F 78 18 103/63 97 05/19/18 07:00 05/19/18 07:00 05/19/18 07:00 05/19/18 07:00 05/19/18 07:00 Intake and Output: 05/19/18 05/19/18 06:59 18:59 Intake Total 1050 Output Total 300 Balance 750 - Medications Medications: Current Medications Benzocaine/Menthol (Cepacol Sore Throat) 1 donell MT Q2H PRN PRN Reason: Sore Throat Last Admin: 05/19/18 02:07 Dose: 1 donell Piperacillin Sod/Tazobactam (Sod 3.375 gm/ Sodium Chloride) 100 mls @ 200 mls/hr IVPB Q6H LEISA; Protocol Last Admin: 05/19/18 09:46 Dose: 200 mls/hr Ondansetron HCl (Zofran Inj) 4 mg IVP Q4H PRN PRN Reason: Nausea/Vomiting Oxycodone/Acetaminophen (Percocet 5/325 Mg Tab) 1 tab PO Q4H PRN PRN Reason: Pain, moderate (4-7) Stop: 05/21/18 12:07 - Labs Labs: 05/19/18 07:27 05/19/18 07:27 PT 14.5 SECONDS (9.7-12.2) H 05/18/18 00:56 INR 1.3 05/18/18 00:56 APTT 26 SECONDS (21-34) 05/18/18 00:56 - Constitutional Appears: Well - Eye Exam Eye Exam: absent: Scleral icterus - Cardiovascular Exam Cardiovascular Exam: REGULAR RHYTHM - GI/Abdominal Exam GI & Abdominal Exam: Soft, Normal Bowel Sounds. absent: Tenderness Assessment and Plan (1) Acute appendicitis Assessment & Plan: doing well post-op advance diet as tolerated await pathology Post op management per surgeon Status: Acute
--- NOTE | 2018-05-19 18:05 | CP.PCM.DIS ---
Provider - Provider Date of Admission: 05/18/18 05:11 Attending physician: Nico Suresh MD Consults: 05/18/18 05:11 General Surgery Consult Stat Comment: ACUTE APPENDICITIS Consulting Provider: Linus Galloway Consulting Physician: Linus Galloway Reason for Consult: ACUTE APPENDICITIS 05/18/18 09:45 Gastroenterology Consult Routine Comment: dx: abdominal pain Consulting Provider: Fabricio Pearson Consulting Physician: Fabricio Pearson Reason for Consult: dx:abdominal pain Hospital Course - Lab Results Lab Results: Micro Results 05/18/18 01:28 Blood Blood Culture - Preliminary NO GROWTH AFTER 24 HOURS 05/18/18 01:27 Blood Blood Culture - Preliminary NO GROWTH AFTER 24 HOURS Most Recent Lab Values WBC 14.7 K/uL (4.8-10.8) H 05/19/18 07:27 RBC 4.16 Mil/uL (3.80-5.20) 05/19/18 07:27 Hgb 10.5 g/dL (11.0-16.0) L D 05/19/18 07:27 Hct 33.0 % (34.0-47.0) L 05/19/18 07:27 MCV 79.4 fL (81.0-99.0) L 05/19/18 07:27 MCH 25.2 pg (27.0-31.0) L 05/19/18 07:27 MCHC 31.7 g/dL (33.0-37.0) L 05/19/18 07:27 RDW 16.1 % (11.5-14.5) H 05/19/18 07:27 Plt Count 83 K/uL (130-400) L D 05/19/18 07:27 MPV 11.9 fL (7.2-11.7) H 05/19/18 07:27 Neut % (Auto) 91.0 % (50.0-75.0) H 05/19/18 07:27 Lymph % (Auto) 1.7 % (20.0-40.0) L 05/19/18 07:27 [place] % (Auto) 7.1 % (0.0-10.0) 05/19/18 07:27 Eos % (Auto) 0.0 % (0.0-4.0) 05/19/18 07:27 Baso % (Auto) 0.2 % (0.0-2.0) 05/19/18 07:27 Neut # (Auto) 13.4 K/uL (1.8-7.0) H 05/19/18 07:27 Lymph # (Auto) 0.3 K/uL (1.0-4.3) L 05/19/18 07:27 [place] # (Auto) 1.0 K/uL (0.0-0.8) H 05/19/18 07:27 Eos # (Auto) 0.0 K/uL (0.0-0.7) 05/19/18 07:27 Baso # (Auto) 0.0 K/uL (0.0-0.2) 05/19/18 07:27 Neutrophils % (Manual) 93 % (50-75) H 05/19/18 07:27 Lymphocytes % (Manual) 2 % (20-40) L 05/19/18 07:27 Monocytes % (Manual) 5 % (0-10) 05/19/18 07:27 Platelet Estimate Decreased (NORMAL) L 05/19/18 07:27 Large Platelets Present 05/19/18 07:27 Giant Platelets Present 05/19/18 07:27 Hypochromasia (manual) Slight 05/19/18 07:27 Poikilocytosis (manual Slight 05/19/18 07:27 Anisocytosis (manual) Slight 05/19/18 07:27 Target Cells Slight 05/19/18 07:27 Ovalocytes Slight 05/19/18 07:27 PT 14.5 SECONDS (9.7-12.2) H 05/18/18 00:56 INR 1.3 05/18/18 00:56 APTT 26 SECONDS (21-34) 05/18/18 00:56 Sodium 139 mmol/L (132-148) 05/19/18 07:27 Potassium 3.5 mmol/L (3.6-5.2) L 05/19/18 07:27 Chloride 106 mmol/L (98-107) 05/19/18 07:27 Carbon Dioxide 24 mmol/L (22-30) 05/19/18 07:27 Anion Gap 11 (10-20) 05/19/18 07:27 BUN 18 mg/dL (7-17) H 05/19/18 07:27 Creatinine 0.9 mg/dL (0.7-1.2) 05/19/18 07:27 Est GFR ( Amer) > 60 05/19/18 07:27 Est GFR (Non-Af Amer) > 60 05/19/18 07:27 Random Glucose 117 mg/dL (65-105) H 05/19/18 07:27 Calcium 8.2 mg/dl (8.6-10.4) L 05/19/18 07:27 Phosphorus 2.9 mg/dL (2.5-4.5) 05/19/18 07:27 Magnesium 2.0 mg/dL (1.6-2.3) 05/19/18 07:27 Total Bilirubin 1.0 mg/dL (0.2-1.3) 05/19/18 07:27 AST 21 U/L (14-36) 05/19/18 07:27 ALT 22 U/L (9-52) 05/19/18 07:27 Alkaline Phosphatase 66 U/L (38-126) 05/19/18 07:27 Total Protein 5.8 g/dL (6.3-8.3) L 05/19/18 07:27 Albumin 3.3 g/dL (3.5-5.0) L D 05/19/18 07:27 Globulin 2.5 gm/dL (2.2-3.9) 05/19/18 07:27 Albumin/Globulin Ratio 1.3 (1.0-2.1) 05/19/18 07:27 Lipase 23 U/L (23-300) 05/18/18 00:56 Urine Color Yellow (YELLOW) 05/18/18 06:49 Urine Clarity Clear (Clear) 05/18/18 06:49 Urine pH 6.0 (5.0-8.0) 05/18/18 06:49 Ur Specific [place] 1.006 (1.003-1.030) 05/18/18 06:49 Urine Protein Negative mg/dL (NEGATIVE) 05/18/18 06:49 Urine Glucose (UA) Normal mg/dL (Normal) 05/18/18 06:49 Urine Ketones Trace mg/dL (NEGATIVE) 05/18/18 06:49 Urine Blood Negative (NEGATIVE) 05/18/18 06:49 Urine Nitrate Negative (NEGATIVE) 05/18/18 06:49 Urine Bilirubin Negative (NEGATIVE) 05/18/18 06:49 Urine Urobilinogen Normal mg/dL (0.2-1.0) 05/18/18 06:49 Ur Leukocyte Esterase Trace [place]/uL (Negative) 05/18/18 06:49 Urine WBC (Auto) 2 /hpf (0-5) 05/18/18 06:49 Urine RBC (Auto) 3 /hpf (0-3) 05/18/18 06:49 Urine Bacteria Rare (<OCC) 05/18/18 06:49 Discharge Exam - Head Exam Head Exam: ATRAUMATIC, NORMAL INSPECTION, NORMOCEPHALIC Discharge Plan - Discharge Medications Prescriptions: Ciprofloxacin [Cipro] 500 mg PO BID 14 Days tab - Follow Up Plan Condition: FAIR Disposition: HOME/ ROUTINE Instructions: Ciprofloxacin (Systemic), Appendicitis, Adult (DC), Acute Abdomen (Belly Pain), Adult (DC), Appendectomy, Laparoscopic Surgery (DC) Additional Instructions: Please follow up with Dr. Galloway at his office on tuesday (05/23/2018) Please resume all home medications. Please resume regular diet. Ok to shower. No heavy lifting greater than 15 pounds for next 4 weeks. Tylenol or Advil for pain. If symptoms worsen, please return to the ED. call dr suresh or pmd or go to the emergency room if symptom return or worsening Referrals: Linus Galloway MD [Staff Provider] - Nico Suresh MD [Staff Provider] -
== END 2018-05-19 13:48 | disposition home or self-care (01) | DRG 342 ==
LOC: C.ER 00:04 → C.6T 05:11
PROVIDERS: ADMIT Internal Medicine Critical Care Medicine; ATTEND Internal Medicine Critical Care Medicine
PROC: 0DTJ4ZZ Resection of Appendix, Percutaneous Endoscopic Approach (ICD-10-PCS; principal; 2018-05-18 11:00)
DX: K35.80 Unspecified acute appendicitis (principal); C91.10 Chronic lymphocytic leukemia of B-cell type not having achieved remission; D69.6 Thrombocytopenia, unspecified; E78.00 Pure hypercholesterolemia, unspecified; I10 Essential (primary) hypertension; K21.9 Gastro-esophageal reflux disease without esophagitis